=== PATIENT | male | born 1965 | race Caucasian/White ===

== ENCOUNTER 2024-05-24 12:34 | Emergency (ER) | payer OTHER ==
[~2024-05-24] VITALS: Ht 172.7 cm; Wt 69.4 kg
[2024-05-24 13:22] LABS: BASOPHILS # (AUTO) 0.2 K/uL (0.0-0.2); BASOPHILS % (AUTO) 1.8 % (0.0-2.0); EOSINOPHILS # (AUTO) 0.3 K/uL (0.0-0.7); EOSINOPHILS % (AUTO) 2.8 % (0.0-6.0); HEMATOCRIT 38 % (39-51); HEMOGLOBIN 12.8 g/dL (13.5-17.5); LYMPHOCYTES # (AUTO) 1.6 K/uL (0.8-4.8); LYMPHOCYTES % (AUTO) 16.5 % (20.0-44.0); MEAN CORPUSCULAR HEMOGLOBIN 30 PG (26.0-33.0); MEAN CORPUSCULAR HGB CONC 33 g/dl (31.0-36.0); MEAN CORPUSCULAR VOLUME 89 fL (80-96); MONOCYTES # (AUTO) 0.7 K/uL (0.1-1.30); MONOCYTES % (AUTO) 6.8 % (2.0-12.0); NEUTROPHILS # (AUTO) 7.1 K/uL (1.8-8.9); NEUTROPHILS % (AUTO) 72.1 % (43.0-81.0); PLATELET COUNT (AUTO) 393 K/uL (150-450); RED BLOOD CELL COUNT(AUTO) 4.33 MIL/uL (4.5-6.0); RED CELL DISTRIBUTION WIDTH 16.1 % (11.5-15.0); WHITE BLOOD COUNT (AUTO) 9.9 K/uL (4.3-11.0)
[2024-05-24] MEDS: IV NS 0.9% 500 ML BAG IV ONE (13:25)
[2024-05-24] MEDS: dexaMETHasone SOD PHOSPHATE 10 MG/ML VIAL IV ONE (13:30)
[2024-05-24] MEDS ORDERED: dexaMETHasone SOD PHOSPHATE 1 ML ONE (13:32)
[2024-05-24] MEDS ORDERED: ACETAMINOPHEN 325 MG TABLET ONE (13:33)
[2024-05-24] MEDS: ACETAMINOPHEN 325 MG TABLET PO ONE (13:37)
[2024-05-24 13:46] LABS: CALCIUM, SERUM 8.9 mg/dL (8.5-10.1); CREATININE 0.9 mg/dL (0.6-1.3); POTASSIUM 4.2 mmol/L (3.5-5.1)
[2024-05-24 13:51] LABS: ALBUMIN 3.3 g/dL (3.4-5.0); BILIRUBIN,TOTAL 0.1 mg/dL (0.2-1.0)
[2024-05-24] MEDS ORDERED: MORPHINE SULFATE 8 MG/ML VIAL IV ONE (14:00)
[2024-05-24] MEDS ORDERED: PRED20TA PO (14:22)
[2024-05-24] MEDS ORDERED: BENZ-13 PO (14:22)
[2024-05-24 14:38] VITALS: BP 136/88; TEMP 98.7; O2SAT 96
== END 2024-05-24 14:39 | disposition home or self-care (01) ==
LOC: ER 12:39
DX: K50.90 Crohn's disease, unspecified, without complications (principal); J06.9 Acute upper respiratory infection, unspecified; F17.210 Nicotine dependence, cigarettes, uncomplicated; Z88.6 Allergy status to analgesic agent
CPT/HCPCS: 99284; 96374; 71045; 96361; 85025; 36415; 80053; J1100; J7040; J2270